=== PATIENT | male | born 1965 | race Caucasian/White ===

== ENCOUNTER 2016-07-31 09:27 | Emergency (ER) | payer OTHER ==
--- NOTE | 2016-07-31 12:56 | ED NURSING NOTES ---
Clinical Report - Nurses Merged With [facility] [address] [place] [address] 07/31/2016 9:29 Patient: DURGA SOSA TRIAGE Triage time 09:58. Acuity: LEVEL 4. Chief Complaint: RIGHT UPPER EXTREMITY PAIN and SWELLING. 09:59 07/31/16. 09:59 07/31/16. Alert. No acute distress. ( Pt states he is post shunt placement in the Left arm for Hemodialysis "a few months ago", pt c/o of pain in the right arm due to IV placement for this procedure. Pt states he was seen at this ER for this and Dr. Gomez office.). --10:16 James Mosley R.N. 09:58 07/31/16. BP: 138/58. HR: 56. RR: 14. O2 saturation: 100%. Temp: 97.8 F (oral). --10:16 James Mosley R.N. Weight: 69.3 kg stated. Height/Length: 65 inches Per Patient. BMI: 25.5. --10:02 James Mosley R.N. Medications AmLODIPine Besylate Oral 10 mg, daily. Ferrous Sulfate Oral 325 mg, 2x a day. --10:06 James Mosley R.N. Atorvastatin Calcium Oral 40 mg, daily. --10:08 James Mosley R.N. LevETIRAcetam Oral 250 mg, 2x a day. --10:08 James Mosley R.N. ASA Oral 325mg, daily. --10:08 James Mosley R.N. Metoprolol Succinate ER Oral 25mg , daily. --10:09 James Mosley R.N. Sodum bicarb 650mg , 3x a day. --10:09 James Mosley R.N. Cephalexin Oral 250 mg, 3x a day, started 07/11/16. --10:12 James Mosley R.N. Oxycodone-Acetaminophen Oral, started 07/09/16. --10:13 James Mosley R.N. The following entry was struck by James Mosley R.N., 10:10 (07/31/16) Reason - other. <<STRICKEN ENTRY-- Omeprazole Oral 40 mg, daily. --10:06 James Mosley R.N. --END STRIKE>>. Medication/allergy information source: the patient. --10:16 James Mosley R.N. Allergies Penicillins. (not sure) --10:06 James Mosley R.N. History Arrived by private vehicle. Historian: patient. Primary physician ([facility], Registered Radiation Therapist-in [place]). 09:59 07/31/16. Treatment CAREER SERVICES OFFICER: (Oxycodone and Cephalexin). PAST MEDICAL HX: Tetanus immunization status is not up-to-date. Immunizations not up to date. SOCIAL HX: Never smoker. History of daily chewing tobacco use. Alcohol use. Patient is a recovering alcoholic. (last drink was 2 months ago, pt drank for 32 years, 18 pack a day). History of heavy drug use: marijuana. No infectious disease exposure. ABUSE ASSESSMENT: No report of abuse. FALL RISK ASSESSMENT: Fall risk assessment completed. No fall risk identified. NUTRITIONAL RISK ASSESSMENT: The nutritional risk assessment revealed no deficiencies. FUNCTIONAL ASSESSMENT: Functional assessment: no impairments noted. LEARNING NEEDS ASSESSMENT: The learning needs assessment revealed no barriers. SKIN INTEGRITY ASSESSMENT: Skin integrity risk assessment completed. No skin integrity risk identified. --10:16 James Mosley R.N. PROBLEMS: Alcoholism. Renal Failure. Heart attack. Kidney problems ?. Coma 9 days. --10:07 James Mosley R.N. ADDITIONAL SURGERIES: Shunt for HD left arm. --10:07 James Mosley R.N. Hernia Repair. --10:13 James Mosley R.N. Assessment 09:59 07/31/16. --10:16 James Mosley R.N. Interventions 09:59 07/31/16. 09:59 07/31/16. ID and allergy band on patient. To treatment room. --10:16 James Mosley R.N. PHYSICAL ASSESSMENT 10:04 07/31/16. Ambulatory to room. GENERAL / NEURO / PSYCH: Oriented X 4. Alert. Appears in no acute distress. EXTREMITIES: Neuro-vascular status intact to the extremity. Right forearm: tenderness. Right wrist: tenderness. SKIN: Skin is warm and dry. --10:04 James Mosley R.N. NURSING PROGRESS NOTES 10:05 07/31/16. The plan of care for this patient has been created. Neuro-vascular extremity check. Patient gowned. Reassurance given. Two patient identifiers checked. Call light placed in reach. Side rails up x 2. Bed placed in lowest position. Brakes of bed on. Brakes of chair on. --10:05 James Mosley R.N. 10:07/31/16. Patient ready for evaluation- chart flagged and notification provided. --10:05 James Mosley R.N. 12:33 07/31/16. ( X-ray completed). --12:33 James Mosley R.N. DISPOSITION / DISCHARGE 13:02 07/31/16. Condition at departure: improved. The goals identified in the patient's plan of care were met. No learning barriers present. Discharge instructions provided and reviewed with the patient. Reviewed warnings. Reviewed medication(s). Treatments reviewed. Patient verbalized understanding. Written instructions provided in Sets[place]. The patient was discharged by the physician. He was discharged home and accompanied by family. He left the Emergency Department ambulatory and via private vehicle. Family member driving. FALL RISK ASSESSMENT: Fall risk assessment completed. No fall risk identified. --13:02 James Mosley R.N. 13:02 07/31/16. BP: 118/68. HR: 78. RR: 12. O2 saturation: 100% on room air. Temp: 98.2 F (oral). --13:02 James Mosley R.N. 13:02 07/31/16. Departure time: 13:02. --13:02 James Mosley R.N. Locked/Released at 07/31/2016 13:42 by James Mosley R.N.
--- NOTE | 2016-07-31 12:56 | ED ORDER SUMMARY ---
..... Patient: DURGA SOSA OrderSheet [facility] VisitID: [id number] [address] [place] [address] 50y, M Registration Date/Time: 07/31/2016 ORDER SHEET Weight: 69.3 kg (stated) Allergies: Penicillins GENERAL ORDERS: Wrist 3 or 4V Right Urgent (12:09 07/31/2016 Albina GAYTAN) ([facility] 12:15 [facility]) (12:28 Damion Singh) MEDICATION ORDERS: IV FLUIDS: ORDER SHEET NOTES: [Electronically signed by James Mosley R.N. (13:42 07/31/2016)] [Electronically signed by Alea Horne MD (07:49 08/06/2016)] [Electronically locked/signed by James Mosley R.N. (13:42 07/31/2016)]
--- NOTE | 2016-07-31 12:56 | ED ORDER SUMMARY ---
..... Patient: DURGA SOSA OrderSheet [facility] VisitID: [id number] [address] [place] [address] 50y, M Registration Date/Time: 07/31/2016 ORDER SHEET Weight: 69.3 kg (stated) Allergies: Penicillins GENERAL ORDERS: Wrist 3 or 4V Right Urgent (12:09 07/31/2016 Albina GAYTAN) ([facility] 12:15 [facility]) (12:28 Damion Singh) MEDICATION ORDERS: IV FLUIDS: ORDER SHEET NOTES: [Electronically signed by James Mosley R.N. (13:42 07/31/2016)] [Electronically signed by Alea Horne MD (07:49 08/06/2016)] [Electronically locked/signed by James Mosley R.N. (13:42 07/31/2016)]
--- NOTE | 2016-07-31 12:56 | ED CLINICAL REPORT ---
Clinical Report - Physicians/Mid Levels [facility] [address] [place] [address] 07/31/2016 9:29 Patient: DURGA SOSA Time Seen: 11:00. Arrived- By private vehicle. Historian- patient. HISTORY OF PRESENT ILLNESS Chief Complaint: TENDER AREA. This started several days ago and is still present. It is described as painful. It has been located on the right upper extremity. A cause has been identified (IV had been attempted in that area, and pt states they missed the vein.). (Pt states he is afraid they may have hit the bone while trying to place the IV.). Similar symptoms previously: None. Recent medical care: The patient was seen recently at another facility. REVIEW OF SYSTEMS No fever, chills, sore throat, cough or difficulty breathing. No hoarseness, lump in throat, enlarged lymph nodes, headache or eye irritation. No chest pain, abdominal pain, nausea, diarrhea or difficulty with urination. No joint pain or vomiting. All systems otherwise negative, except as recorded above. PAST HISTORY Problems: Alcoholism. Renal Failure. Heart attack. Kidney problems ?. Coma 9 days. Additional Surgeries: Hernia Repair. Shunt for HD left arm. Medications: Oxycodone-Acetaminophen Oral, started 07/09/16. Cephalexin Oral 250 mg, 3x a day, started 07/11/16. Sodum bicarb 650mg , 3x a day. Metoprolol Succinate ER Oral 25mg , daily. ASA Oral 325mg, daily. LevETIRAcetam Oral 250 mg, 2x a day. Atorvastatin Calcium Oral 40 mg, daily. AmLODIPine Besylate Oral 10 mg, daily. Ferrous Sulfate Oral 325 mg, 2x a day. Allergies: Penicillins. (not sure). SOCIAL HISTORY Alcohol use. Patient is a recovering alcoholic. History of drug use chewing tobacco: marijuana. ADDITIONAL NOTES The nursing notes have been reviewed. PHYSICAL EXAM Vital Signs: 07/31/2016 09:58 BP: 138/58. HR: 56. RR: 14. O2 saturation: 100%. Temp: 97.8 F. Have been reviewed. Appearance: Alert. Oriented X3. No acute distress. Eyes: Pupils equal, round and reactive to light. Conjunctivae and eyelids normal. CVS: Pulses normal. Strong peripheral pulses. Respiratory: No respiratory distress. Skin: Skin warm and dry. Single small tender indurated area to right wrist (Mild ecchymosis is noted over the area.). No fluctuance, pointing, drainage or cellulitis. Extremities: (Normal other than R wrist, as noted above. RUE shunt has a good thrill.). Neuro: Oriented X 3. No motor deficit. No sensory deficit. LABS, X-RAYS, AND EKG Rt Wrist X-ray: No fracture. Normal alignment. No bony lesion, air in the soft tissue or foreign body. Soft tissues normal. Joint spaces normal. Views: AP, lateral and oblique. Technique: good. The X-rays were independently viewed by me, interpreted by the radiologist and contemporaneously by me and discussed with the radiologist. Prior films were not available for comparison. Pulse Oximetry: 07/31/2016 09:58 O2 saturation: 100%. (FIO2 - room air). Interpretation: normal. PROGRESS AND PROCEDURES Course of Care: X-ray showed no bony injury. No signs of infection were present. Patient counseled in person regarding the patient's stable condition, test results, diagnosis and need for follow-up. Concerns were addressed. Old medical records reviewed. Disposition: Discharged. Condition: stable. CLINICAL IMPRESSION Chronic tendonitis (with acute exacerbation). INSTRUCTIONS (Your x-rays look good--no evidence of a bone infection, whatsoever. Please finish your antibiotics, and speak with your doctor about seeing a specialist or having an MRI if your symptoms continue.). Warnings: GENERAL WARNINGS: Return or contact your physician immediately if your condition worsens or changes unexpectedly, if not improving as expected, or if other problems arise. Your Current Medications: CONTINUE TAKING THE FOLLOWING MEDICATIONS: AmLODIPine Besylate Oral : 10 mg daily. ASA Oral : 325mg daily. Atorvastatin Calcium Oral : 40 mg daily. Cephalexin Oral : 250 mg 3x a day, Started: 07/11/16. Ferrous Sulfate Oral : 325 mg 2x a day. LevETIRAcetam Oral : 250 mg 2x a day. Metoprolol Succinate ER Oral : 25mg daily. Oxycodone-Acetaminophen Oral : Started: 07/09/16. Sodum bicarb* : 650mg 3x a day. Prescription Medications: Hydrocodone/APAP 5mg / 325mg: take 1-2 orally every 6 hours as needed for pain. Dispense twelve (12). No refill. Follow-up: Follow up with your doctor. Call for the next available appointment. Understanding of the discharge instructions verbalized by patient. (Electronically signed by Alea Horne MD 08/06/2016 7:49)
--- NOTE | 2016-07-31 13:00 | DIAGNOSTIC IMAGING REPORT ---
PROCEDURE: XR WRIST MIN 3 VIEWS - RIGHT INDICATION: PAIN TECHNIQUE: Three views of the right wrist. COMPARISON: None. FINDINGS: Normal mineralization. No fractures. Normal osseous alignment. No suspicious soft-tissue calcification or radiodense foreign bodies. IMPRESSION: 1. Intact right wrist.
--- NOTE | 2016-08-06 07:50 | ED MED RECONCILIATION SUMMARY ---
Patient: DURGA SOSA Medication Reconciliation Report [facility] VisitID: [id number] [address] [place] [address] 50y, M Registration Date/Time: 07/31/2016 Weight: 69.3 kg Height/Length: 65 in. BMI: 25.5 ALLERGIES: Penicillins The patient's Home Medications are listed below: CONTINUE TAKING THE FOLLOWING MEDICATIONS: AmLODIPine Besylate Oral 10 mg, daily ASA Oral 325mg, daily Atorvastatin Calcium Oral 40 mg, daily Cephalexin Oral 250 mg, 3x a day Ferrous Sulfate Oral 325 mg, 2x a day LevETIRAcetam Oral 250 mg, 2x a day Metoprolol Succinate ER Oral 25mg , daily Oxycodone-Acetaminophen Oral Sodum bicarb 650mg , 3x a day The source(s) of the original Home Medication information: patient The following Medications were given to the patient in the Emergency Department: None. The following Medications were prescribed to the patient: Hydrocodone/APAP 5mg / 325mg: take 1-2 orally every 6 hours as needed for pain. Dispense twelve (12). No refill. -- Alea Horne MD
--- NOTE | 2016-08-06 07:50 | ED MAR SUMMARY ---
..... Medication Administration Record [facility] [address] [place], [place] [id number] Patient: DURGA SOSA Visit ID: [id number] 50y, M Weight: 69.3 kg Height/Length: 65 in BMI: 25.5 ALLERGIES: Penicillins
--- NOTE | 2016-08-06 07:50 | ED MED RECONCILIATION SUMMARY ---
Patient: DURGA SOSA Medication Reconciliation Report [facility] VisitID: [id number] [address] [place] [address] 50y, M Registration Date/Time: 07/31/2016 Weight: 69.3 kg Height/Length: 65 in. BMI: 25.5 ALLERGIES: Penicillins The patient's Home Medications are listed below: CONTINUE TAKING THE FOLLOWING MEDICATIONS: AmLODIPine Besylate Oral 10 mg, daily ASA Oral 325mg, daily Atorvastatin Calcium Oral 40 mg, daily Cephalexin Oral 250 mg, 3x a day Ferrous Sulfate Oral 325 mg, 2x a day LevETIRAcetam Oral 250 mg, 2x a day Metoprolol Succinate ER Oral 25mg , daily Oxycodone-Acetaminophen Oral Sodum bicarb 650mg , 3x a day The source(s) of the original Home Medication information: patient The following Medications were given to the patient in the Emergency Department: None. The following Medications were prescribed to the patient: Hydrocodone/APAP 5mg / 325mg: take 1-2 orally every 6 hours as needed for pain. Dispense twelve (12). No refill. -- Alea Horne MD
--- NOTE | 2016-08-06 07:50 | ED MAR SUMMARY ---
..... Medication Administration Record [facility] [address] [place], [place] [id number] Patient: DURGA SOSA Visit ID: [id number] 50y, M Weight: 69.3 kg Height/Length: 65 in BMI: 25.5 ALLERGIES: Penicillins
--- NOTE | 2016-08-06 07:50 | ED DISCHARGE INSTRUCTIONS ---
Patient: DURGA SOSA General Instructions [facility] VisitID: [id number] [place] [address] 50y, M Registration Date/Time: 07/31/2016 Chronic tendonitis (with acute exacerbation). INSTRUCTIONS (Your x-rays look good--no evidence of a bone infection, whatsoever. Please finish your antibiotics, and speak with your doctor about seeing a specialist or having an MRI if your symptoms continue.). Warnings: GENERAL WARNINGS: Return or contact your physician immediately if your condition worsens or changes unexpectedly, if not improving as expected, or if other problems arise. Your Current Medications: CONTINUE TAKING THE FOLLOWING MEDICATIONS: AmLODIPine Besylate Oral : 10 mg daily. ASA Oral : 325mg daily. Atorvastatin Calcium Oral : 40 mg daily. Cephalexin Oral : 250 mg 3x a day, Started: 07/11/16. Ferrous Sulfate Oral : 325 mg 2x a day. LevETIRAcetam Oral : 250 mg 2x a day. Metoprolol Succinate ER Oral : 25mg daily. Oxycodone-Acetaminophen Oral : Started: 07/09/16. Sodum bicarb* : 650mg 3x a day. Prescription Medications: Hydrocodone/APAP 5mg / 325mg: take 1-2 orally every 6 hours as needed for pain. Dispense twelve (12). No refill. Follow-up: Follow up with your doctor. Call for the next available appointment. Understanding of the discharge instructions verbalized by patient. ADDITIONAL INFORMATION Tendonitis A tendon is the thick fibrous cord that joins muscle to bone and causes joints to move. Tendonitis is inflammation of the tendon which may be due to overuse, injury or infection. This usually involves the shoulders, forearm, wrist, hands and foot. Symptoms include local pain, swelling and tenderness to the touch. Movement of the involved joint increases the pain. Tendonitis requires about 4 to 6 weeks to heal. It is treated by preventing motion of the tendon with a splint or brace and use of anti-inflammatory medicine. Home Care: Apply an ice pack (ice cubes in a plastic bag, wrapped in a towel) over the injured area for 20 minutes every 1-2 hours the first day for pain relief. Continue this 3-4 times a day until the pain and swelling goes away. Rest the inflamed joint and protect it from movement. You may use ibuprofen (Motrin, Advil) or naproxen (Aleve, Naprosyn) to treat pain and inflammation, unless another medicine was prescribed. If you can't take these medicines, acetaminophen (Tylenol) may help with the pain, but does not treat inflammation. [NOTE : If you have chronic liver or kidney disease or ever had a stomach ulcer or GI bleeding, talk with your doctor before using these medicines.] As your symptoms improve, begin gradual motion at the involved joint. Follow Up With Your Doctor If Not Improving After The First Five Days Of Treatment. Get Prompt Medical Attention If Any Of The Following Occur: Redness over the painful area Increasing pain or swelling at the joint Fever of 100.4F (38C) or higher, or as directed by your healthcare provider You have been given the following additional information: Tendonitis (Electronically signed by Alea Horne MD 08/06/2016 7:49)
== END 2016-07-31 13:02 | disposition home or self-care (01) ==
LOC: ED SRH 09:27
DX: M77.8 Other enthesopathies, not elsewhere classified (principal); N19 Unspecified kidney failure; Z79.891 Long term (current) use of opiate analgesic; Z79.2 Long term (current) use of antibiotics; Z79.82 Long term (current) use of aspirin; Z88.0 Allergy status to penicillin; Z79.899 Other long term (current) drug therapy